=== PATIENT | male | born 1970 | race Two or more races ===

== ENCOUNTER 2020-07-17 04:53 | Day surgery (SDC) | payer OTHER | END 2020-07-17 16:35 | disposition home or self-care (01) | LOC: CIR.AMB 04:53 | PROVIDERS: ATTEND Specialist | DX: K40.90 Unilateral inguinal hernia, without obstruction or gangrene, not specified as recurrent (principal); Z20.828 Contact with and (suspected) exposure to other viral communicable diseases ==

== ENCOUNTER 2025-02-11 07:52 | Day surgery (SDC) | payer OTHER ==
[2025-02-01 09:24] LABS: BASO % 0.5 % (0.1-1.2); EOS # 0.04 (0.04-0.54); EOS % 0.7 % (0.7-7.0); HEMATOCRIT 44.8 % (40.1-51.0); HEMOGLOBIN 15.1 g/dL (13.7-17.5); LYMPH # 1.75 (1.18-3.74); LYMPH % 31.1 % (19.3-53.1); MEAN CORPUSCULAR HEMOGLOBIN 28.1 pg (25.6-32.2); MONO # 0.41 (0.24-0.82); MONO % 7.3 % (4.7-12.5); NEUT # 3.38 (1.56-6.13); NEUT % 60.2 % (34.0-71.1); PLATELET COUNT 141 K/uL (163-369); RED BLOOD COUNT 5.38 M/uL (4.63-6.08); RED CELL DISTRIBUTION WIDTH 12.6 % (11.6-14.4)
[2025-02-01 09:35] VITALS: BP 147/90
[2025-02-01 09:44] LABS: INR 1.01; PARTIAL THROMBOPLASTIN TIME 29.1 SECONDS (22.0-34.0)
[2025-02-01 10:02] LABS: ALBUMIN 4.4 gm/dL (3.4-5.0); BILIRUBIN TOTAL 0.48 mg/dL (0.3-1.2); CALCIUM 8.7 mg/dL (8.5-10.1); CREATININE SERUM 0.78 mg/dL (0.70-1.30); GFR 103.72; GLOBULINA 3.5 G/DL (2.4-3.5); POTASSIUM 3.85 mEq/L (3.5-5.1); TOTAL PROTEIN 7.9 gm/dL (6.4-8.2)
[2025-02-01 10:10] LABS: URINE APPEARANCE Clear; URINE BILIRRUBIN Negative (NEGATIVE); URINE BLOOD Negative; URINE COLOR Yellow; URINE GLUCOSE Negative (NEGATIVE); URINE KETONE Negative (NEGATIVE); URINE LEUKOCYTE Negative; URINE NITRATE Negative; URINE PROTEIN Trace (NEGATIVE); URINE UROBILINOGEN 0.2 E.U./dl
[2025-02-01 10:14] LABS: URINE BACTERIA 6.1 uL (0.0-1933); URINE EPITHELIAL CELLS 1.4 uL (0.0-38.8); URINE RBC 5.3 uL (0.0-20.8)
[~2025-02-11] VITALS: Ht 170.2 cm; Wt 90.3 kg
[~2025-02-11 07:52] MED LIST: CIALIS5 MG PO; NORVASC10 MG PO; ROSUVASTATIN CA20 MG PO; SINGULAIR10 MG PO; ZESTRIL40 M1 PO; ZYRTEC10 M3 PO
[2025-02-11] MEDS ORDERED: DEXAMETHASONE SODIUM PHOSPHATE 4 MG/ML VIAL ONE (13:38)
[2025-02-11] MEDS ORDERED: SUGAMMADEX SODIUM 200 MG/2 ML VIAL IV ONE (15:20)
[2025-02-11] MEDS ORDERED: hydrALAZINE HCL 20 MG VIAL ONE (16:59)
== END 2025-02-11 18:25 | disposition home or self-care (01) ==
LOC: CIR.AMB 07:52
PROVIDERS: ATTEND Otolaryngology
DX: J38.2 Nodules of vocal cords (principal); J38.1 Polyp of vocal cord and larynx; J38.3 Other diseases of vocal cords; R49.0 Dysphonia